=== PATIENT | male | born 1975 | race Caucasian/White ===

== ENCOUNTER 2022-12-08 23:53 | Emergency (ER) | payer MEDICARE, MEDICAID ==
[2022-12-09] MEDS ORDERED: ULTRAM50 MG PO (01:45)
[2022-12-09] MEDS ORDERED: AMOXICILLIN500 MG PO (01:45)
[2022-12-09 02:02] VITALS: BP 129/85
== END 2022-12-09 02:02 | disposition home or self-care (01) ==
LOC: ED 23:53
DX: S09.93XA Unspecified injury of face, initial encounter (principal); K04.7 Periapical abscess without sinus; K02.9 Dental caries, unspecified; S02.5XXA Fracture of tooth (traumatic), initial encounter for closed fracture; F17.210 Nicotine dependence, cigarettes, uncomplicated; V86.95XA Unspecified occupant of 3- or 4- wheeled all-terrain vehicle (ATV) injured in nontraffic accident, initial encounter

== ENCOUNTER 2023-07-13 17:08 | Emergency (ER) | payer MEDICARE, MEDICAID ==
[~2023-07-13] VITALS: Ht 182.9 cm; Wt 72.5 kg
[2023-07-13] VITALS (8 sets, daily range): BP systolic 108–132; BP diastolic 79–91
[~2023-07-13 17:08] MED LIST: AMOXICILLIN500 MG PO; ULTRAM50 MG PO
[2023-07-13] MEDS ORDERED: BACTRIM DS1 TAB PO (18:51)
== END 2023-07-13 19:00 | disposition home or self-care (01) ==
LOC: ED 17:08
DX: L03.012 Cellulitis of left finger (principal); S61.012A Laceration without foreign body of left thumb without damage to nail, initial encounter; W26.8XXA Contact with other sharp object(s), not elsewhere classified, initial encounter; F17.210 Nicotine dependence, cigarettes, uncomplicated